=== PATIENT | male | born 1980 | race Caucasian/White ===

== ENCOUNTER 2024-11-26 15:02 | Outpatient (CLI) | payer OTHER, SELFPAY ==
--- NOTE | ~2024-11-26 | US_ITS ---
Testicular ultrasound with doppler. Indication: Other specified disorder of male genital organs. Technique: Real-time sonography the scrotum was performed. Color flow Doppler and Doppler spectral an alysis were performed. Findings: The testes are homogeneous in echotexture bilaterally. There is no evidence of an intrates ticular mass. The right testis measures 4.7 x 2.8 x 3.2 cm and the left 4.9 x 2.5 x 3.6 cm. There is color-flow seen to both testes. Arterial and venous spectral waveforms are seen in both testes. There is no sonographic evidence of torsion. Small bilateral epididymal cysts or spermatoceles are present . Small bilateral hydroceles are present.. At the area of clinical concern, there is a 2.0 x 1.8 cm hypoechoic somewhat masslike area in the epi didymis. Impression: 2.0 x 1.8 cm hypoechoic somewhat masslike area at the area of clinical concern inferior to the left t estis. Epididymal mass is a consideration. Imaging characteristics are nonspecific, but epididymal le sions are most typically benign. Correlate clinically. Consider follow-up exam versus more aggressive workup at this time. No testicular mass or torsion. Small bilateral hydroceles. Reviewed, dictated and finalized at [facility]. Impression: 2.0 x 1.8 cm hypoechoic somewhat masslike area at the area of clinical concern inferior to the left testis. Epididymal mass is a consideration. Imaging charac teristics are nonspecific, but epididymal lesions are most typically benign. Co rrelate clinically. Consider follow-up exam versus more aggressive workup at th is time. No testicular mass or torsion. Small bilateral hydroceles.
== END 2024-11-26 15:03 | disposition home or self-care (01) ==
DX: N50.89 Other specified disorders of the male genital organs (principal); N43.3 Hydrocele, unspecified
CPT/HCPCS: 76870; 93976

== ENCOUNTER 2025-06-04 01:30 | Day surgery (SDC) | payer OTHER, SELFPAY ==
[2025-05-25 14:41] VITALS: BMI 31.2
[2025-06-04 08:39] VITALS: BP 122/81; PULSE 78; RESP 18; TEMP 36.1; O2SAT 100; BMI 31.6
[2025-06-04] MEDS: LACTATED RINGERS 1,000 ML 150 ML IV CONT (08:49)
--- NOTE | 2025-06-04 09:29 | P.HP_ITS ---
History of Present Illness History of Present Illness Consent: Risks, benefits, and alternatives have been discussed and questions answered. Patient agrees to proceed with procedure. Chief complaint: Encounter for screening for malignant neoplasm of Narrative: Leonel Hale is a 44 year old male here for first screening colonoscopy Review of Systems Review of Systems: All systems reviewed & are unremarkable except as noted in HPI and below PMFSH Past Medical History Medical History (Updated 06/04/25 @ 09:29 by Yemi Garcia MD) Colon cancer screening Social History Social History Smoking status: Current every day smoker Tobacco type: cigarettes and e-cigarettes/vaping Substance use type: does not use Living arrangements: with family Additional living arrangements comments: with sp Meds Home Medications and Allergies Home Medications ?Medication ?Instructions ?Recorded ?Confirmed ?Type metformin 500 mg tablet,extended 500 mg PO DAILY 05/2506/04/25 History release 24 hr semaglutide 0.25 mg or 0.5 mg (2 0.5 mg subcut WEEKLY 05/25/25 06/04/25 History mg/3 mL) subcutaneous pen injector ([facility]) Allergies Allergy/AdvReac Type Severity Reaction Status Date / Time No Known Allergies Allergy Verified 06/04/25 08:38 Vital Signs Vital Signs - 24 hr 06/04/25 08:39 Temperature 97 F L Pulse Rate 78 Respiratory Rate 18 Blood Pressure 122/81 Pulse Oximetry 100 Oxygen Delivery Room Air Exam Const: General: comfortable and no acute distress HENMT: Face/Nose/Sinus: Normal nares present Eyes: General: appearance normal, both eyes and all related structures Neck: Neck: no JVD Resp: Auscultation: clear to auscultation bilaterally Cardio: Rate: regular rate Rhythm: regular rhythm GI: Inspection: non-distended GI Palp: Yes Soft to palpation Skin: General skin exam: normal color Extrem: General: normal to inspection Psych: Mental Status: mental status grossly normal Assessment and Plan Assessment and plan (1) Colon cancer screening: Code(s): Z12.11 - Encounter for screening for malignant neoplasm of colon Status: Acute Assessment and Plan: colonoscopy
--- NOTE | 2025-06-04 09:30 | P.PNAN_ITS ---
Anes - Initial Pre Proc Eval Procedure: Operation Date: 06/04/25 10:00 Proposed Procedures p Screening Colonoscopy - Yemi Garcia MD Date/Time: 06/04/25 09:30 Surgeon: Yemi Garcia MD Pre Op Diagnosis: Encounter for screening for malignant neoplasm of Patient Data Age: 44 Gender: M Height: 1.83 m Weight: 105.8 kg Last Vital Signs Temp 36.1 C L 06/04/25 08:39 Pulse 78 06/04/25 08:39 Resp 18 06/04/25 08:39 BP 122/81 06/04/25 08:39 Pulse Ox 100 06/04/25 08:39 O2 Del Method Room Air 06/04/25 08:39 Allergies Allergy/AdvReac Type Severity Reaction Status Date / Time No Known Allergies Allergy Verified 06/04/25 08:38 Home Medications ?Medication ?Instructions ?Recorded ?Confirmed ?Type metformin 500 mg tablet,extended 500 mg PO DAILY 05/2506/04/25 History release 24 hr semaglutide 0.25 mg or 0.5 mg (2 0.5 mg subcut WEEKLY 05/25/25 06/04/25 History mg/3 mL) subcutaneous pen injector (Ozempic) Laboratory Tests 06/04/25 08:48 POC Capillary Glucose 78 mg/dl (65-105) Patient hx anesthesia problems: none Family hx anesthesia problems: none Results Review: All pre-operative results and documents have been reviewed as part of the pre- operative evaluation. [facility] Past Medical History Medical History Colon cancer screening Social History Social History Smoking status: Current every day smoker Tobacco type: cigarettes and e-cigarettes/vaping Substance use type: does not use Living arrangements: with family Additional living arrangements comments: with sp Anes - Eval Final PreProcedure Day of Procedure 06/04/25 09:30 Patient weight: obese Heart: regular rate and rhythm Lungs: clear to auscultation Airway: Mallampati scale class II Neurological: alert and oriented Last oral intake: >/= 8 hours ASA classification: III Emergent: no Anesthetic plan: proceed Anesthesia type and monitoring: general GIVS and standard monitoring Results Review: All pre-operative results and documents have been reviewed as part of the pre- operative evaluation. Informed Consent: The patient's anesthetic plan and its attendant risks and benefits were discussed with the patient/family/POA. Questions were solicited and answers provided to the satisfaction of the patient/family/POA.
[2025-06-04 09:48] VITALS: BP 98/66; PULSE 70; RESP 19; O2SAT 99
[2025-06-04 09:58] VITALS: BP 101/68; PULSE 68; RESP 17; O2SAT 100
[2025-06-04 10:08] VITALS: BP 110/79; PULSE 78; RESP 18; O2SAT 100
== END 2025-06-04 10:20 | disposition home or self-care (01) ==
PROVIDERS: Visit Provider Internal Medicine Gastroenterology
PROC: 0DJD8ZZ Inspection of Lower Intestinal Tract, Via Natural or Artificial Opening Endoscopic (ICD-10-PCS; CPT 45378; principal; 2025-06-04 10:00)
DX: Z12.11 Encounter for screening for malignant neoplasm of colon (principal); F17.210 Nicotine dependence, cigarettes, uncomplicated; F17.290 Nicotine dependence, other tobacco product, uncomplicated; E66.9 Obesity, unspecified; Z68.31 Body mass index [BMI] 31.0-31.9, adult; Z79.84 Long term (current) use of oral hypoglycemic drugs; Z79.85 Long-term (current) use of injectable non-insulin antidiabetic drugs
CPT/HCPCS: 45378; 82948; J2704; J7120